=== PATIENT | male | born 1990 | race Caucasian/White ===

== ENCOUNTER 2024-04-23 15:43 | Inpatient (IN) | payer MEDICARE, MEDICAID, SELFPAY ==
[2024-04-23 16:19] VITALS: BP 155/89; PULSE 107; RESP 20; TEMP 37.9; O2SAT 97
--- NOTE | 2024-04-23 17:03 | XR_ITS ---
Examination: Abdomen upright single view Technique one AP upright abdomen single view Exam date and time: April 23, 2024 1714 hours INDICATIONS: Fever abdominal pain today. FINDINGS: Nonobstructive bowel gas pattern. No free air. Multiple clips right pelvis Moderate lumbar dextroscoliosis IMPRESSION: Nonobstructive bowel gas pattern
--- NOTE | 2024-04-23 17:04 | EDRME_ITS ---
Rapid Medical Screening Exam [facility] Arrival date/time: 04/23/24 15:43 34-year-old male presents to the emergency department with complaints of bodyaches, fever and mild abdominal pain. Patient does report he has a history of renal transplant on immunosuppressants. I have greeted and performed a focused initial assessment of this patient. Initial appropriate labs ordered at this time. A comprehensive ED assessment and evaluation of the patient and analysis of all test and completion of medical decision making process will be conducted by additional ED provider. Chief Complaint: Fever Time Seen by Provider: 04/23/24 16:21 Vital signs: Vital Signs Temperature 100.2 F 04/23/24 16:19 Pulse Rate 107 H 04/23/24 16:19 Respiratory Rate 20 04/23/24 16:19 Blood Pressure 155/89 H 04/23/24 16:19 Pulse Oximetry (%) 97 04/23/24 16:19 Oxygen Delivery Method Room Air 04/23/24 16:19
[2024-04-23 17:21] LABS: Collection Type, Urine Clean Catch; Squamous Epithelial Cell,Urine 0 /hpf (0-5)
[2024-04-23 17:25] LABS: Basophils % (Auto) 0 % (0-2.5); Eosinophils % (Auto) 0 % (0-10); Hematocrit 43.7 % (41.0-53.0); Hemoglobin 14.5 g/dL (13.5-16.0); Immature Granulocytes % (Auto) 1 % (0-0); Immature Granulocytes Auto 0.08 Thou/mm3 (0.00-0.00); Lymphocytes % (Auto) 10 % (10-50); Mean Corpuscular HGB Conc 33.2 g/dl (31.0-37.0); Mean Corpuscular Hemoglobin 26.1 pg (25.0-35.0); Mean Corpuscular Volume 79 fL (80-100); Monocytes # (Auto) 1.1 Thou/mm3 (0.0-0.8); Monocytes % (Auto) 11 % (0-12); Neutrophils # (Auto) 7.9 Thou/mm3 (1.8-7.7); Neutrophils % (Auto) 78 % (37-80); Nucleated Red Blood Cell % 0 /100 WBC (0); Platelet Count 197 Thou/mm3 (140-440); RDW Standard Deviation 37.5 fL (35.1-43.9); Red Blood Count 5.56 Miln/mm3 (4.50-5.90)
[2024-04-23 17:32] LABS: Bilirubin,Urine Negative (Negative); Blood,Urine 2+ (Negative); Clarity,Urine Clear (Clear/Hazy); Color,Urine Yellow (Lt Yel-Yel); Glucose, Urine Negative (Negative); Ketones,Urine Negative (Negative); Leukocyte Esterase,Urine Positive (Negative); Nitrite,Urine Negative (Negative); PH,Urine 6.5 (5.0-7.0); Protein,Urine 1+ (Neg - Trace); RBC,Urine 21 /hpf (0-3); Specific Gravity,Urine 1.018 (1.001-1.035); Urobilinogen,Urine Negative mg/dL (0.0-1.0); WBC,Urine 25 /hpf (0-5)
[2024-04-23 17:35] LABS: INR 1.2 (0.9-1.3); Prothrombin Time 12.8 Seconds (9.0-12.2)
[2024-04-23 17:42] LABS: Alanine Aminotransferase 58 U/L (10-49); Albumin, Serum 4.9 gm/dL (3.5-5.0); Albumin/Globulin Ratio 1.6 (1.2-2.2); Alkaline Phosphatase 85 U/L (46-116); Anion Gap 11 (7-16); Aspartate Amino Transferase 39 U/L (0-34); BUN/Creatinine Ratio 11 Ratio (12-20); Bilirubin,Total 2.5 mg/dL (0.3-1.2); Blood Urea Nitrogen 24 mg/dL (9-23); Calcium 9.7 mg/dL (8.3-10.6); Calcium (Corrected) 9.7 mg/dL (8.5-10.1); Carbon Dioxide 19.4 mMol/L (20.0-31.0); Chloride 104 mMol/L (98-107); Creatinine (Component) 2.1 mg/dL (0.6-1.3); Globulin 3.1 gm/dL (2.3-3.5); Glucose 116 mg/dL (74-106); Lipase 85 U/L (12-53); Magnesium 1.4 mg/dL (1.6-2.6); Osmolality,Calculated 273 (275-295); Potassium 4.6 mMol/L (3.4-5.1); Sodium 134 mMol/L (136-145); Troponin I < 0.020 ng/mL (0.0-0.045); eGFR 41 See Note
[2024-04-23] MEDS: ACETAMINOPHEN 500 MG TABLET 1000 MG PO (18:26)
[2024-04-23 18:28] VITALS: BMI 35.9
[2024-04-23 18:46] LABS: Lactate (Lactic Acid) 0.8 mMol/L (0.4-2.0)
[2024-04-23 20:05] LABS: Procalcitonin 0.54 ng/ml (0.0-0.49)
[2024-04-23 22:19] VITALS: BP 142/91; PULSE 98; RESP 18; TEMP 36.8; O2SAT 97
[2024-04-23 23:13] VITALS: BP 137/91; PULSE 100; RESP 19; TEMP 36.7; O2SAT 99
[2024-04-24] VITALS (11 sets, daily range): BP systolic 137–161; BP diastolic 78–95; PULSE 86–102; RESP 17–19; TEMP 36.6–37.3; O2SAT 88–99; BMI 35.9
--- NOTE | 2024-04-24 | XR_ITS ---
MRI abdomen, without contrast. MRCP Date and time of exam: April 24, 2024 1212 hrs. Indications: Abdominal pain fever flank pain, diagnosis immunocompromised, CT examination today right transplant kidney with no hydronephrosis, gallbladder sonogram today hyperechoic pancreas, borderline thickening gallbladder wall Technique: Multiple axial and coronal images of the abdomen have been obtained with the Siemens 1.5T MRI scanner. Images obtained included T1 weighted transverse images, T2-weighted transverse images, T2-weighted transverse images fat-suppressed, T2 weighted haste fat suppressed transverse images, T1 weighted images, in and out of phase images, T2-weighted coronal images, breath hold, T2 weighted haze coronal images as well as T2 weighted coronal thick slab images, MRCP. Findings: Liver sagittal dimension 14 cm, no intrahepatic biliary tract dilatation Liver is mildly irregular in contour Contracted gallbladder with no gallbladder wall edema Common hepatic duct common bile duct 2 mm no stones Splenomegaly 13.8 cm The pancreas is not enlarged. No pancreatic edema. No dilatation pancreatic duct Aorta normal size No ascites In stage atrophic left kidney Absent right kidney Impression: Cirrhosis versus primary hepatocellular disease Mild splenomegaly Contracted gallbladder, no gallstones, negative for cholecystitis Normal common hepatic common bile duct, no extrahepatic biliary stones No pancreatic mass, negative for pancreatitis
--- NOTE | 2024-04-24 01:03 | PD.EDFEVER ---
ED Fever RME/HPI General Chief Complaint: Fever Stated Complaint: Fever, REINA, flank and leg pain Time Seen by Provider: 04/23/24 16:21 Arrival date/time: 04/23/24 15:43 Limitations: no limitations RME / HPI RME / HPI Narrative: 04/23/24 15:43 34-year-old male presents to the emergency department with complaints of bodyaches, fever and mild abdominal pain. Patient does report he has a history of renal transplant on immunosuppressants. I have greeted and performed a focused initial assessment of this patient. Initial appropriate labs ordered at this time. A comprehensive ED assessment and evaluation of the patient and analysis of all test and completion of medical decision making process will be conducted by additional ED provider. ------- Dr. Mckeon's Main ED Evaluation: 34yo male with a history of HTN, kidney transplant at the [facility] (2018 at [facility]) presents to the ED for multiple complaints. Patient states he started having a headache, generalized body aches, a fever, and epigastric and mid abdominal pain pain yesterday. States it migrates to his left abdomen. He endorses associated nausea. Patient states he took Tylenol without improvement of symptoms, so he came in for evaluation. He denies any V/D or any other associated symptoms. Patient states he hasn't been drinking fluids. No known allergies. Related Data Home Medications ?Medication ?Instructions ?Recorded ?Confirmed mycophenolate sodium 180 mg 180 mg PO BID 02/17/19 10/18/21 tablet,delayed release (Myfortic) sodium bicarbonate 325 mg tablet 325 mg PO 3XD 02/17/19 10/18/21 tacrolimus 1 mg capsule, 3 mg PO BID 02/17/19 10/18/21 immediate-release tacrolimus 5 mg capsule, 5 mg PO BID 02/17/19 10/18/21 immediate-release metoprolol tartrate 25 mg tablet 25 tab PO BID 10/17/21 10/18/21 Allergies Allergy/AdvReac Type Severity Reaction Status Date / Time No Known Allergies Allergy Verified 11/28/23 15:13 Review of Systems Review of Systems Systems Reviewed: All systems reviewed, normal except as documented Past Medical History Past Medical History CARDIAC: Positive Hypertension; Negative Congestive Heart Failure RESPIRATORY: Negative Chronic Obstructive Pulmonary Disease (COPD) GENITOURINARY: Positive Genitourinary Disorders, Renal Disease and Dialysis ENDOCRINE: Negative Diabetes Mellitus Type 1 or Diabetes Mellitus Type 2 OTHER HISTORY: Positive Hospitalization, Blood Transfusions and Organ Transplant Surgical History SURGICAL: Positive Organ Transplant Social History SMOKING STATUS: Never smoker SUBSTANCE USE: does not use Physical Exam General Limitations: no limitations General appearance: alert, in no apparent distress and other (appears uncomfortable) Head Head exam: atraumatic Eye Eye exam: Present normal appearance, PERRL and EOMI; Absent scleral icterus ENT ENT exam: Present normal exam, normal oropharynx and mucous membranes dry Neck Neck exam: Present normal inspection, full ROM and trachea midline Chest Chest inspection: Present normal inspection and symmetric chest wall rise Respiratory Respiratory exam: Present normal lung sounds bilaterally Cardiovascular Cardiovascular exam: Present regular rate, normal rhythm and normal heart sounds Abdominal Exam Abdominal exam: Present soft and normal bowel sounds; Absent distention or tenderness Extremities Exam Extremities exam: Present normal inspection and full ROM; Absent pedal edema Back Exam Back exam: Present normal inspection and full ROM Neurological Exam Neurological exam: Present alert, oriented X3 and CN II-XII intact Psychiatric Psychiatric exam: Present normal affect and normal mood Skin Skin exam: Present warm, dry, intact and other (slightly jaundice); Absent diaphoresis ED Exam General Limitations: Present no limitations General appearance: Present alert, in no apparent distress and other (appears uncomfortable) Head Head exam: Present atraumatic Eye Eye exam: Present normal appearance, PERRL and EOMI; Absent scleral icterus ENT ENT exam: Present normal exam, normal oropharynx and mucous membranes dry Neck Neck exam: Present normal inspection, full ROM and trachea midline Chest Chest inspection: Present normal inspection and symmetric chest wall rise Respiratory Respiratory exam: Present normal lung sounds bilaterally Cardiovascular Cardiovascular exam: Present regular rate, normal rhythm and normal heart sounds Abdominal Exam Abdominal exam: Present soft and normal bowel sounds; Absent distention or tenderness Extremities Exam Extremities exam: Present normal inspection and full ROM; Absent pedal edema Back Exam Back exam: Present normal inspection and full ROM Neurological Exam Neurological exam: Present alert, oriented X3 and CN II-XII intact Psychiatric Psychiatric exam: Present normal affect and normal mood Skin Skin exam: Present warm, dry, intact and other (slightly jaundice); Absent diaphoresis Course Quality Measures none Orders Category Date Time Status Bedside COVID-19 Antigen Test NOW Care 04/23/24 16:45 Completed Bedside Influenza A&B Antigen Test NOW Care 04/23/24 16:45 Completed NPO STAT Care 04/23/24 17:[address] abdomen pelvis wo con Stat Exams 04/24/24 03:33 Taken US gall bladder Stat Exams 04/24/24 01:19 Taken XR abdomen upright Stat Exams 04/23/24 17:03 Completed Blood Culture (Lab) Stat Lab 04/23/24 17:15 Received CBC Stat Lab 04/23/24 17:13 Completed Cholesterol Stat Lab 04/24/24 03:35 Ordered Comprehensive Metabolic Panel Stat Lab 04/23/24 17:13 Completed LDH (Lactate Dehydrogenase) Stat Lab 04/24/24 03:35 Ordered Lactate (Lactic Acid) Stat Lab 04/23/24 18:18 Completed Lipase Stat Lab 04/23/24 17:13 Completed Magnesium Stat Lab 04/23/24 17:13 Completed Procalcitonin Stat Lab 04/23/24 18:18 Completed Prothrombin Time with INR Stat Lab 04/23/24 17:13 Completed Troponin I Stat Lab 04/23/24 17:13 Completed Urinalysis Stat Lab 04/23/24 17:14 Completed Acetaminophen Tab [Tylenol ES Tab] Med 04/23/24 17:45 Discontinued 1,000 mg PO X1 ONE Acetaminophen Tab [Tylenol ES Tab] Med 04/24/24 02:51 Discontinued 1,000 mg PO X1 ONE HYDROmorphone INJ [Dilaudid Inj] Med 04/24/24 03:36 Discontinued 0.5 mg IVP X1 ONE Ibuprofen Tab [Motrin Tab] Med 04/23/24 18:29 Discontinued 600 mg PO X1 ONE Morphine Inj Med 04/24/24 03:33 Discontinued 2 mg IVP X1 ONE Ondansetron Inj [Zofran Inj] Med 04/24/24 01:09 Discontinued 4 mg IV X1 ONE Ondansetron Inj [Zofran Inj] Med 04/24/24 03:33 Discontinued 4 mg IV X1 ONE Sodium Chloride 0.9% 1000 ml [Ns] 1,000 ml Med 04/24/24 01:09 Discontinued IV 999 mls/hr Vital Signs Vital signs: Vital Signs Temperature 100.2 F 04/23/24 16:19 Pulse Rate 107 H 04/23/24 16:19 Respiratory Rate 20 04/23/24 16:19 Blood Pressure 155/89 H 04/23/24 16:19 Pulse Oximetry (%) 97 04/23/24 16:19 Oxygen Delivery Method Room Air 04/23/24 16:19 Pulse ox is 97% on room air, which is normal according to my interpretation. Fever Patient data External records reviewed:: [facility] previous records (Per chart review, patient was seen here on 11/28/23 for DOC.) Clinical information provided by:: patient Social determinants that could affect healthcare access:: none Patient has the following chronic illnesses:: HTN How is presenting disease/condition affected by chronic disease/condition?: uneffected by Evaluation data The following diagnostics were reviewed and interpreted by me:: lab results and radiology exam(s) Lab and/or radiology exams considered but not ordered:: none Interpretation Summary: CBC is normal, Creatinine is 2.1, Lactic Acid is normal, Magnesium is slightly low at 1.4, Total Bilirubin is elevated at 2.5, AST and ALT are slightly elevated, troponin is normal, Lipase is slightly elevated at 85, Procalcitonin is slightly elevated at 0.54, according to my interpretation. -------- [facility] Report Signed Patient: BLAKE BALLESTEROS [employer]. Record#: [id number] Birthdate: 1990 Age/Sex: 34 / M Location: [facility] Attending Dr: Ordering Physician: Namita Cruz Date of Service: 04/23/24 Procedure(s): XR abdomen upright Accession Number(s): [id number] cc: Silvestre Soto MD; Anant Lovett MD; Namita Cruz~ Examination: Abdomen upright single view Technique one AP upright abdomen single view Exam date and time: April 23, 2024 1714 hours INDICATIONS: Fever abdominal pain today. FINDINGS: Nonobstructive bowel gas pattern. No free air. Multiple clips right pelvis Moderate lumbar dextroscoliosis IMPRESSION: Nonobstructive bowel gas pattern Dictated By: Silvestre Soto MD Signed By: <Electronically signed by Silvestre Soto MD in OV> 04/23/24 [id number] [address] Preliminary Report Draft Patient: BLAKE BALLESTEROS [employer]. Record#: [id number] Birthdate: 1990 Age/Sex: 34 / M Location: [facility] Attending Dr: Ordering Physician: Date of Service: Procedure(s): Accession Number(s): cc: ~ Right upper quadrant abdominal ultrasound with Doppler and wave Doppler spectral analysis. April 24, 2024 0209 hours Clinical history: 34-yo with elevated lipase, immunocompromise possible GS Technique: Grayscale and color flow images of the right upper quadrant are provided. Hepatic and portal veins were also imaged with color flow images. Comparison: None. Findings: The study is limited by bowel gas. The liver is normal in echogenicity. No intrahepatic biliary ductal dilatation. Gallbladder wall thickening. No gallbladder calculus or pericholecystic fluid is demonstrated. The common bile duct is normal in caliber at 3.0 mm. The pancreas imaged portion of the pancreas are hyperechoic. The portal vein is patent with hepatopetal flow with normal wave Doppler spectral analysis. Holly sign is negative. Impression: Hyperechoic pancreas suspicious for acute pancreatitis. Gallbladder wall thickening, suspicious for acute cholecystitis, consider correlation with HIDA scan. Report Electronically Signed By: Ashok Anderson 04/24/2024 3:28:38 AM [EST] Medications / Prescriptions Medications or Prescriptions considered but not ordered:: none Medication administrations:: Medication Administration History Discontinued Medications Acetaminophen (Acetaminophen 500 Mg Tablet) 1,000 mg PO X1 ONE Stop: 04/23/24 17:46 Last Admin: 04/23/24 18:26 Dose: 1,000 mg Documented By: Acetaminophen (Acetaminophen 500 Mg Tablet) 1,000 mg PO X1 ONE Stop: 04/24/24 02:52 Last Admin: 04/24/24 03:15 Dose: 1,000 mg Documented By: AM Hydromorphone HCl (Hydromorphone Inj 2 Mg/Ml Vial) 0.5 mg IVP X1 ONE Stop: 04/24/24 03:37 Sodium Chloride (Ns) 1,000 mls @ 999 mls/hr IV .Q1H1M ONE Stop: 04/24/24 02:09 Last Infusion: 04/24/24 02:40 Dose: Infused Documented By: Admin: 04/24/24 01:39 Dose: 999 mls/hr Documented By: EE Ibuprofen (Ibuprofen Tab 600 Mg Tablet) 600 mg PO X1 ONE Stop: 04/23/24 18:30 Last Admin: 04/23/24 19:42 Dose: Not Given Documented By: CB Non-Admin Reason: Cancelled by Provider Morphine Sulfate (Morphine Sulf Inj 10 Mg/Ml Vial) 2 mg IVP X1 ONE Stop: 04/24/24 03:34 Last Admin: 04/24/24 03:47 Dose: Not Given Documented By: RC Non-Admin Reason: Discontinued Ondansetron HCl (Ondansetron Inj 2 Mg/Ml Inj 2 Ml) 4 mg IV X1 ONE; Protocol Stop: 04/24/24 01:10 Last Admin: 04/24/24 01:40 Dose: 4 mg Documented By: ROSEMARIE Ondansetron HCl (Ondansetron Inj 2 Mg/Ml Inj 2 Ml) 4 mg IV X1 ONE; Protocol Stop: 04/24/24 03:34 see above Consultations Consultation(s) initiated? (list below): No Diagnosis Fever Differential Diagnosis: pyelonephritis and other (cholelithiasis, cholecystitis, pancreatitis) Most likely diagnosis given after review of the tests above:: see below Admission Indicated Admission indicated?: not indicated Admission Request Was there a request for admission?: No Disposition Plan Disposition Plan: other (specify) (Signed out to Dr. Myers at [address] abdomen pelvis.) Discharge Plan Prescriptions/Referrals Prescriptions/Med Rec: No Action tacrolimus 5 mg Capsule 5 mg PO BID tacrolimus 1 mg Capsule 3 mg PO BID mycophenolate sodium [Myfortic] 180 mg tablet,delayed release (DR/EC) 180 mg PO BID sodium bicarbonate 325 mg Tablet 325 mg PO 3XD metoprolol tartrate 25 mg tablet 25 tab PO BID Referrals: Anant Lovett MD [Primary Care Provider] - In 1 week Patient/Caregiver Discharge Instructions Print Language: Portuguese
--- NOTE | 2024-04-24 01:19 | XR_ITS ---
Examination: Abdomen sonogram, Limited Date and time of exam: April 24, 2024 0209 hours INDICATIONS: Right-sided abdominal pain onset today Technique: Real-time man scale transabdominal sonographic images of the upper abdomen obtained. Findings: Gas obscures detail No definite gallstones Gallbladder wall measures 0.34 cm Common bile duct 0.3 cm Hyperechoic pancreas measuring 3.5 cm Liver normal size irregular contour. Normal hepatopedal portal venous flow Patent IVC IMPRESSION: Consider MRCP follow-up to assess the gallbladder , exclude cholecystitis as well as to exclude pancreatitis
[2024-04-24] MEDS: SODIUM CHLORIDE 0.9% 1000 ML 1,000 ML 999 ML IV ×2 (01:39→05:59)
[2024-04-24] MEDS: ONDANSETRON INJ 2 MG/ML INJ 2 ML 4 MG IV ×2 (01:40→16:26)
[2024-04-24] MEDS: ACETAMINOPHEN 500 MG TABLET 1000 MG PO (03:15)
--- NOTE | 2024-04-24 03:29 | PRELIM_ITS ---
Right upper quadrant abdominal ultrasound with Doppler and wave Doppler spectral analysis. March 0209 hours Clinical history: 34-yo with elevated lipase, immunocompromise possible GS Techniqu e: Grayscale and color flow images of the right upper quadrant are provided. Hepatic and portal veins were also imaged with color flow images. Comparison: None.Findings:The study is limited by bowel gas .The liver is normal in echogenicity. No intrahepatic biliary ductal dilatation. Gallbladder wall th ickening. No gallbladder calculus or pericholecystic fluid is demonstrated. The common bile duct is normal in caliber at 3.0 mm. The pancreas imaged portion of the pancreas are hyperechoic. The sanjana l vein is patent with hepatopetal flow with normal wave Doppler spectral analysis.Holly sign is nega tive.Impression:Hyperechoic pancreas suspicious for acute pancreatitis.Gallbladder wall thickening, s uspicious for acute cholecystitis, consider correlation with HIDA scan. Report Electronically Signed By: Ashok Anderson 04/24/2024 3:28:38 AM [EST]
--- NOTE | 2024-04-24 03:33 | XR_ITS ---
Examination: CT abdomen and pelvis without contrast. Coronal 3-D reconstructions. Sagittal 2-D reconstructions. Date and time of exam:April 24, 2024 0406 hours INDICATIONS: History renal failure with abdominal pain fever today right flank and leg pain, history diverticulitis CTDI: vol (mGy): 10.8 DLP: (mGycm): 708 Technique: Axial images of the abdomen have been obtained, 3 mm slice thickness Intravenous contrast material has not been administered. Low dose protocols were performed. One or more of the following dose reduction techniques were used; automated exposure control, adjustment of the mA and/or KV according to patient size, use of iterative reconstruction technique. Findings: Liver mildly irregular in contour Contracted gallbladder Splenomegaly 14 cm Absent right kidney Normal appendix Endstage atrophic left kidney with tiny calcifications No bowel obstruction Right transplant kidney with no hydronephrosis No current diverticulitis Urinary bladder intact I do not visualize definite colitis IMPRESSION: Primary hepatocellular disease Splenomegaly End-stage atrophic left kidney Right transplant kidney with no hydronephrosis Normal appendix
--- NOTE | 2024-04-24 05:40 | PRELIM_ITS ---
CT scan of the abdomen and pelvis without intravenous contrast (axial sections with sagittal and toya nal reformats) April 24, 2024 0406 hours Clinical History: 34-year-old history of renal transplant Comparison: Ultrasound of April 24, 2024.Findings:The lung bases are clear.The gallbladder, pancrea s, and adrenals are unremarkable on this noncontrast study.Splenomegaly with craniocaudal diameter of 14.9 cm.Mild irregular liver margins.The right kidney is absent.Atrophic left kidney with cystic les ions, the largest measuring 4.1 cm.No evidence of bowel obstruction. The appendix is within normal li mits.There is no mesenteric or retroperitoneal adenopathy.The urinary bladder is unremarkable. There is no free fluid or free air.The osseous structures are unremarkable.Fluid stools throughout the colo n associated with mild colonic wall thickening.No pericolonic fat stranding.Diverticulosis of the col on.Transplanted kidney in the right iliac fossa, normal-appearing.Soft tissue nodule in the right jaylon ac fossa measuring 1.0 cm.Impression:Mild colitis.Possible cirrhosis.Splenomegaly.Absent right kidney .Atrophic left kidney with cystic lesions, consider further evaluation for characterization.Soft tiss ue nodule in the right lower quadrant of uncertain etiology, consider further evaluation. Report Elec tronically Signed By: Ashok Anderson 04/24/2024 5:39:55 AM [EST]
[2024-04-24] MEDS: PIPER/TAZO 3.375 GM 3.375 GM/50 ML BAG IV (05:58)
--- NOTE | 2024-04-24 07:19 | PC.NURSE ---
Received report from Josefina PAUL and assumed care of patient. Patient resting in bed and states pain 5/10.
--- NOTE | 2024-04-24 12:47 | PD.EDADDENDU ---
Emergency Room Addendum Addendum Narrative: 0600: Care assumed from Dr. Myers, the previous shift emergency physician. Past medical, surgical, social and family history reviewed. Vitals and home medications reviewed. I will assume the care of the patient at this time, pending CT abdomen pelvis and final disposition. Please refer to the emergency department record for history and examination from initial visit.? Physical exam by me shows patient under no acute distress at this time. 1548: Discussed test HPI, PMHx, lab, radiology results and/or management with hospitalist. Will admit for further evaluation and management. Accepts patient for admission. 1639: Hospitalist wanted us to contact Dr. Lovett since she is the primary provider and production officer. 1640: Discussed test HPI, PMHx, lab, radiology results and/or management with Dr. Lovett. Will admit for further evaluation and management. Accepts patient for admission. RADIOLOGY Procedure(s): CT abdomen pelvis wo [facility] Accession Number(s): [id number] cc: Silvestre Soto MD; Marine Mckeon MD; Anant Lovett MD~ Examination: CT abdomen and pelvis without contrast. Coronal 3-D reconstructions. Sagittal 2-D reconstructions. Date and time of exam:April 24, 2024 0406 hours INDICATIONS: History renal failure with abdominal pain fever today right flank and leg pain, history diverticulitis CTDI: vol (mGy): 10.8 DLP: (mGycm): 708 Technique: Axial images of the abdomen have been obtained, 3 mm slice thickness Intravenous contrast material has not been administered. Low dose protocols were performed. One or more of the following dose reduction techniques were used; automated exposure control, adjustment of the mA and/or KV according to patient size, use of iterative reconstruction technique. Findings: Liver mildly irregular in contour Contracted gallbladder Splenomegaly 14 cm Absent right kidney Normal appendix Endstage atrophic left kidney with tiny calcifications No bowel obstruction Right transplant kidney with no hydronephrosis No current diverticulitis Urinary bladder intact I do not visualize definite colitis IMPRESSION: Primary hepatocellular disease Splenomegaly End-stage atrophic left kidney Right transplant kidney with no hydronephrosis Normal appendix Dictated By: Silvestre Soto MD Procedure(s): US gall bladder Accession Number(s): [id number] cc: Silvestre Soto MD; Marine Mckeon MD; Anant Lovett MD~ Examination: Abdomen sonogram, Limited Date and time of exam: April 24, 2024 0209 hours INDICATIONS: Right-sided abdominal pain onset today Technique: Real-time man scale transabdominal sonographic images of the upper abdomen obtained. Findings: Gas obscures detail No definite gallstones Gallbladder wall measures 0.34 cm Common bile duct 0.3 cm Hyperechoic pancreas measuring 3.5 cm Liver normal size irregular contour. Normal hepatopedal portal venous flow Patent IVC IMPRESSION: Consider MRCP follow-up to assess the gallbladder , exclude cholecystitis as well as to exclude pancreatitis Dictated By: Silvestre Soto MD Procedure(s): MR MRCP Accession Number(s): [id number] cc: Aneesh Myers MD; Silvestre Soto MD; Anant Lovett MD~ MRI abdomen, without contrast. MRCP Date and time of exam: April 24, 2024 1212 hrs. Indications: Abdominal pain fever flank pain, diagnosis immunocompromised, CT examination today right transplant kidney with no hydronephrosis, gallbladder sonogram today hyperechoic pancreas, borderline thickening gallbladder wall Technique: Multiple axial and coronal images of the abdomen have been obtained with the Siemens 1.5T MRI scanner. Images obtained included T1 weighted transverse images, T2-weighted transverse images, T2-weighted transverse images fat-suppressed, T2 weighted haste fat suppressed transverse images, T1 weighted images, in and out of phase images, T2-weighted coronal images, breath hold, T2 weighted haze coronal images as well as T2 weighted coronal thick slab images, MRCP. Findings: Liver sagittal dimension 14 cm, no intrahepatic biliary tract dilatation Liver is mildly irregular in contour Contracted gallbladder with no gallbladder wall edema Common hepatic duct common bile duct 2 mm no stones Splenomegaly 13.8 cm The pancreas is not enlarged. No pancreatic edema. 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
--- NOTE | 2024-04-24 15:48 | XR_ITS ---
Examination: AP chest single view Technique one AP portable semiupright chest single view Exam date and time: April 24, 2024 1603 hrs. Comparison May 05, 2020 Indications: Fever in an immunocompromised individual Findings: Enlarged hilar regions suspicious for adenopathy and perihilar inflammatory disease Accentuation of the basilar bronchovascular markings No brittany pulmonary edema Mild osteopenia Impression: Abnormally enlarged hilar regions suspicious for adenopathy and perihilar inflammatory disease Clinical correlation advised
--- NOTE | 2024-04-24 15:55 | PC.NURSE ---
Patient states pain 9/10. Informed ER provider and received verbal order for 4mg Zofran IV and 0.5mg hydromorphone IV.
--- NOTE | 2024-04-24 15:59 | PC.NURSE ---
Patient states pain 9/10. Informed ER provider and received verbal order for 4mg Zofran IV and 4mg morphine IV.
[2024-04-24 16:11] LABS: Cholesterol 130 mg/dL (132-200); LDH (Lactate Dehydrogenase) 201 U/L (120-246)
[2024-04-24] MEDS: MORPHINE SULF INJ 10 MG/ML VIAL 4 MG IVP (16:26)
--- NOTE | 2024-04-24 16:46 | PD.NEPHHP ---
Documentation for date of: 04/24/24 History of Present Illness History of Present Illness Chief complaint: Fever, s/p kidney transplant, r/o sepsis History of present illness: Mr. Cramer is a?34 year-old male with pmhx significant for polycystic kidney disease, hypertension- was on hemodialysis for couple of years. Fortunately had kidney transplant (2018 at [facility] [place]- wit delayed graft function), left upper arm DVT, metabolic acidosis presented to emergency department complaining of fevers weakness and not feeling well. Denies any nausea, vomiting, diarrhea, cough, shortness of breath, abdominal pain, UTI symptoms or any other associated symptoms. Denies any falls, injuries, or loss of consciousness. No known allergies. Patient states he is currently on Eliquis, Lipitor, vitamin D, magnesium, metoprolol, CellCept, sodium bicarbonate, tacrolimus for kidney transplant in 2018. In the emergency department patient was noted to have a elevated creatinine of 2.1 Started on IV fluids and admitted. ER called the transplant team-recommended overnight observation pending cultures and to continue with IV fluids. In the emergency department WBC 10, hemoglobin 14.5, platelets 197, sodium 134, potassium 4.6, BUN to 24, creatinine 2.1, GFR 57, blood sugar 116, LFTs normal, phosphorus 2.9, magnesium 1.4, total bilirubin 2.5, AST 39, ALT 59, total cholesterol 130, Pro-Willis 0.54 urinalysis shows 1+ protein few red blood cells and white cells. 2+ blood. chest x-ray showed inflammation in the hilar area. Abdominal CT showed liver cirrhosis, splenomegaly, end-stage kidneys, right kidney transplant. Gallbladder ultrasound showed no definite gallstones but the common bile duct was 0.3 gallbladder wall slightly enlarged. MRCP showed no stones. Patient in fact recently was admitted to [facility] hospital for acute renal failure and transferred to [facility]. Admitted to the floor for fever-unknown etiology, immunosuppression for kidney transplant, DOC. Review of Systems Review of Systems Narrative Review of Systems: CONSTITUTIONAL: Patient had fever and chills HEENT: Denies any visual disturbances or hearing problems. CARDIOVASCULAR: Patient denies any chest pain, shortness of breath, swelling in the lower extremities. PULMONARY: Patient denies any shortness of breath, cough. GASTROINTESTINAL: Patient denies any abdominal pain, constipation, nausea, vomiting, diarrhea. GENITOURINARY: Patient denies any urinary symptoms of burning or frequency or hematuria, denies any form in the urine. SKIN: Denies any rash. MUSCULOSKELETAL: Denies any muscular skeletal problems of joint pains. NEUROLOGICAL: Denies any neurological problems of strokes, seizures or confusion. Denies any memory problems. PSYCHIATRIC: Denies any depression or anxiety. LYMPHATICS : No lymphadenopathy Past Medical History Past Medical History CARDIAC: Positive Hypertension; Negative Congestive Heart Failure RESPIRATORY: Negative Respiratory Disorders or Chronic Obstructive Pulmonary Disease (COPD) GENITOURINARY: Positive Genitourinary Disorders, Renal Disease and Dialysis ENDOCRINE: Negative Diabetes Mellitus Type 1 or Diabetes Mellitus Type 2 OTHER HISTORY: Positive Hospitalization, Blood Transfusions and Organ Transplant Surgical History SURGICAL: Positive Organ Transplant Social History SMOKING STATUS: Never smoker SUBSTANCE USE: does not use Meds Home Medications and Allergies Home Medications ?Medication ?Instructions ?Recorded ?Confirmed ?Type mycophenolate sodium 180 mg 720 mg PO BID 02/17/19 04/25/24 History tablet,delayed release (Myfortic) sodium bicarbonate 325 mg tablet 650 mg PO 3XD 02/17/19 04/24/24 History tacrolimus 1 mg capsule, 1 mg PO 2XD 02/17/19 04/25/24 History immediate-release tacrolimus 5 mg capsule, 5 mg PO 2XD 02/17/19 04/25/24 History immediate-release metoprolol tartrate 25 mg tablet 25 tab PO 2XD 10/17/21 04/25/24 History apixaban 5 mg tablet (Eliquis) 5 mg PO QAM 04/24/24 04/24/24 History atorvastatin 20 mg tablet 20 mg PO HS 04/24/24 04/24/24 History ergocalciferol (vitamin D2) 1,250 1,250 mcg PO QDAY 04/24/24 04/24/24 History mcg (50,000 unit) capsule magnesium oxide 400 mg (241.3 mg 400 mg PO QAM 04/24/24 04/24/24 History magnesium) tablet Allergies Allergy/AdvReac Type Severity Reaction Status Date / Time No Known Allergies Allergy Verified 11/28/23 15:13 Exam Vital Signs Temp Pulse Resp BP Pulse Ox O2 Del Method 36.9 C 89 18 153/94 H 98 Room Air 04/24/24 14:55 04/24/24 14:55 04/24/24 14:55 04/24/24 14:55 04/24/24 14:55 04/24/24 14:55 Narrative Exam GENERAL APPEARANCE: Patient seems to be comfortable, seems dehydrated HEENT: EOMI, PERRLA NECK: Neck supple, no JVD or bruit CARDIOVASCULAR: Heart regular, no murmurs LUNGS/CHEST: Chest clear to auscultation. No rales, rhonchi, wheezing ABDOMEN: Soft, nontender, nondistended. No masses. Normal bowel sounds. Right allograft+ EXTREMITIES: No edema, clubbing or cyanosis. SKIN: Left arm AV fistula with no thrill. MUSCULOSKELETAL: Good pulses noted. NEUROLOGICAL : No neurological deficits Results: Labs 04/25/24 05:24 04/25/24 05:24 Labs: Short CBC 04/23/24 Range/Units 17:13 WBC 10.0 (3.8-10.6) Thou/mm3 Hgb 14.5 (13.5-16.0) g/dL Hct 43.7 (41.0-53.0) % Plt Count 197 (140-440) Thou/mm3 BMP 04/23/24 17:13 Sodium 134 L Potassium 4.6 Chloride 104 Carbon Dioxide 19.4 L BUN 24 H Creatinine 2.1 H Glucose 116 H Calcium 9.7 Cardiac Enzymes 04/23/24 Range/Units 17:13 Troponin I < 0.020 (0.0-0.045) ng/mL Liver Function 04/23/24 Range/Units 17:13 Total Bilirubin 2.5 H (0.3-1.2) mg/dL AST 39 H (0-34) U/L ALT 58 H (10-49) U/L Alkaline Phosphatase 85 (46-116) U/L Albumin 4.9 (3.5-5.0) gm/dL Urine 04/23/24 Range/Units 17:14 Urine Color Yellow (Lt Yel-Yel) Urine Clarity Clear (Clear/Hazy) Urine pH 6.5 (5.0-7.0) Ur Specific [place] 1.018 (1.001-1.035) Urine Protein 1+ A (Neg - Trace) Urine Glucose (UA) Negative (Negative) Assessment & Plan Assessment and plan (1) Acute kidney injury: Status: Acute (2) Hypertension: Status: Acute (3) Status post kidney transplant: Status: Acute (4) Metabolic acidosis: Status: Acute Additional Assessment & Plan Additional Plan: 1) Acute kidney injury: ?Status:?Acute ? ? ? Assessment and plan: Acute on chronic renal failure secondary to prerenal azotemia.? IV fluids given. 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 ? ? Assessment and plan: Continue metoprolol (3) Status post kidney transplant: ?Status:?Acute ? ? ? Assessment and plan: S/p kidney transplant-resume home immunosuppressive medication (4) hx of Deep venous thrombosis of upper extremity: ?Status:?Acute ? ? ? Assessment and plan: On Eliquis (5) Metabolic acidosis: ?Status:?Acute ? ? ? Assessment and plan: Added bicarbonate Estimated length of stay 2 to 3 days DVT prophylaxis on Eliquis GI prophylaxis not needed CODE STATUS full code Quality Measures Quality Measures none
[2024-04-24 17:05] LABS: Basophils % (Auto) 0 % (0-2.5); Eosinophils % (Auto) 0 % (0-10); Hematocrit 44.4 % (41.0-53.0); Hemoglobin 14.4 g/dL (13.5-16.0); Immature Granulocytes % (Auto) 0 % (0-0); Immature Granulocytes Auto 0.03 Thou/mm3 (0.00-0.00); Lymphocytes % (Auto) 11 % (10-50); Mean Corpuscular HGB Conc 32.4 g/dl (31.0-37.0); Mean Corpuscular Hemoglobin 26.3 pg (25.0-35.0); Mean Corpuscular Volume 81 fL (80-100); Monocytes # (Auto) 1.1 Thou/mm3 (0.0-0.8); Monocytes % (Auto) 13 % (0-12); Neutrophils # (Auto) 6.7 Thou/mm3 (1.8-7.7); Neutrophils % (Auto) 76 % (37-80); Nucleated Red Blood Cell % 0 /100 WBC (0); Platelet Count 198 Thou/mm3 (140-440); RDW Standard Deviation 39.1 fL (35.1-43.9); Red Blood Count 5.48 Miln/mm3 (4.50-5.90); White Blood Count 8.9 Thou/mm3 (3.8-10.6)
[2024-04-24 17:13] LABS: Albumin, Serum 4.7 gm/dL (3.5-5.0); Anion Gap 11 (7-16); BUN/Creatinine Ratio 15 Ratio (12-20); Blood Urea Nitrogen 30 mg/dL (9-23); Calcium 9.5 mg/dL (8.3-10.6); Calcium (Corrected) 9.5 mg/dL (8.5-10.1); Chloride 104 mMol/L (98-107); Estimated Creatinine Clearance 57.4 mL/min (>60); Glucose 101 mg/dL (74-106); Osmolality,Calculated 278 (275-295); Phosphorous 2.9 mg/dL (2.4-5.1); Potassium 4.7 mMol/L (3.4-5.1); Sodium 136 mMol/L (136-145); eGFR 44 See Note
[2024-04-24] MEDS: PIPER/TAZO 3.375 GM 50 ML IV ×2 (18:06→21:44)
--- NOTE | 2024-04-24 19:28 | PC.NURSE ---
Report given to Ruth PAUL @ [id number]
[2024-04-24] MEDS: Magnesium Sulfate 2 GM Ivpb 2 GM/50 ML BAG IV (19:29)
[2024-04-24] MEDS: METOPROLOL TARTRATE 25 MG TABLET PO (20:29)
[2024-04-24] MEDS: DiphenhydrAMINE ELIX 25 MG/10 ML UDC PO (21:51)
[2024-04-24] MEDS: ACETAMINOPHEN 500 MG TABLET PO (21:51)
[2024-04-25] VITALS (8 sets, daily range): BP systolic 119–149; BP diastolic 59–90; PULSE 80–90; RESP 17–19; TEMP 36.2–37.4; O2SAT 95–99
[2024-04-25] MEDS: PIPER/TAZO 3.375 GM 50 ML IV ×3 (05:13→21:12)
[2024-04-25] MEDS: SODIUM BICARBONATE 650 MG TABLET 1300 MG PO ×3 (05:15→21:07)
[2024-04-25 06:19] LABS: Basophils % (Auto) 0 % (0-2.5); Eosinophils % (Auto) 1 % (0-10); Hematocrit 43.3 % (41.0-53.0); Hemoglobin 13.8 g/dL (13.5-16.0); Immature Granulocytes % (Auto) 0 % (0-0); Immature Granulocytes Auto 0.02 Thou/mm3 (0.00-0.00); Lymphocytes # (Auto) 1.5 Thou/mm3 (1.0-4.8); Lymphocytes % (Auto) 22 % (10-50); Mean Corpuscular HGB Conc 31.9 g/dl (31.0-37.0); Mean Corpuscular Hemoglobin 26.1 pg (25.0-35.0); Mean Corpuscular Volume 82 fL (80-100); Monocytes # (Auto) 1.1 Thou/mm3 (0.0-0.8); Monocytes % (Auto) 16 % (0-12); Neutrophils % (Auto) 61 % (37-80); Nucleated Red Blood Cell % 0 /100 WBC (0); Platelet Count 191 Thou/mm3 (140-440); Red Blood Count 5.29 Miln/mm3 (4.50-5.90); White Blood Count 6.6 Thou/mm3 (3.8-10.6)
[2024-04-25 06:48] LABS: Albumin, Serum 4.3 gm/dL (3.5-5.0); Anion Gap 9 (7-16); BUN/Creatinine Ratio 14 Ratio (12-20); Blood Urea Nitrogen 30 mg/dL (9-23); Calcium 9.5 mg/dL (8.3-10.6); Calcium (Corrected) 9.5 mg/dL (8.5-10.1); Carbon Dioxide 20.7 mMol/L (20.0-31.0); Chloride 105 mMol/L (98-107); Creatinine (Component) 2.1 mg/dL (0.6-1.3); Estimated Creatinine Clearance 54.7 mL/min (>60); Glucose 104 mg/dL (74-106); Osmolality,Calculated 276 (275-295); Phosphorous 3.2 mg/dL (2.4-5.1); Potassium 4.4 mMol/L (3.4-5.1); Sodium 135 mMol/L (136-145); eGFR 41 See Note
[2024-04-25] MEDS: TACROLIMUS 1 MG CAPSULE (NON-FORMULARY) 5 MG PO (09:00)
--- NOTE | 2024-04-25 09:27 | PD.NEPHPROG ---
Documentation for date of: 04/25/24 Subjective Subjective Interval history: Mr. Cramer is a?34 year-old male with pmhx significant for polycystic kidney disease, hypertension- was on hemodialysis for couple of years. Fortunately had kidney transplant (2018 at [facility]- wit delayed graft function), left upper arm DVT, metabolic acidosis presented to emergency department complaining of fevers weakness and not feeling well. Denies any nausea, vomiting, diarrhea, cough, shortness of breath, abdominal pain, UTI symptoms or any other associated symptoms. Denies any falls, injuries, or loss of consciousness. No known allergies. Patient states he is currently on Eliquis, Lipitor, vitamin D, magnesium, metoprolol, CellCept, sodium bicarbonate, tacrolimus for kidney transplant in 2018. In the emergency department patient was noted to have a elevated creatinine of 2.1 Started on IV fluids and admitted. ER called the transplant team-recommended overnight observation pending cultures and to continue with IV fluids. In the emergency department WBC 10, hemoglobin 14.5, platelets 197, sodium 134, potassium 4.6, BUN to 24, creatinine 2.1, GFR 57, blood sugar 116, LFTs normal, phosphorus 2.9, magnesium 1.4, total bilirubin 2.5, AST 39, ALT 59, total cholesterol 130, Pro-Willis 0.54 urinalysis shows 1+ protein few red blood cells and white cells. 2+ blood. chest x-ray showed inflammation in the hilar area. Abdominal CT showed liver cirrhosis, splenomegaly, end-stage kidneys, right kidney transplant. Gallbladder ultrasound showed no definite gallstones but the common bile duct was 0.3 gallbladder wall slightly enlarged. MRCP showed no stones. Patient in fact recently was admitted to [facility] hospital for acute renal failure and transferred to [facility]. Admitted to the floor for fever-unknown etiology, immunosuppression for kidney transplant, DOC. 04/25/2024 patient currently seen medical floor. Complaining of right eye infection. Tobramycin eye ointment given. Recommended to follow-up with his eye doctor [facility]. He is immunocompromised. Resumed all his immunosuppressive medications. So far all the cultures are negative. Creatinine tad better. Could be viral illness. If clinically stable will plan for discharge tomorrow. Review of Systems Review of Systems Narrative Review of Systems: CONSTITUTIONAL: Patient had fever and chills HEENT: Complaining of right eye conjunctivitis with erythema around the eyelids CARDIOVASCULAR: Patient denies any chest pain, shortness of breath, swelling in the lower extremities. PULMONARY: Patient denies any shortness of breath, cough. GASTROINTESTINAL: Patient denies any abdominal pain, constipation, nausea, vomiting, diarrhea. GENITOURINARY: Patient denies any urinary symptoms of burning or frequency or hematuria, denies any form in the urine. SKIN: Denies any rash. MUSCULOSKELETAL: Denies any muscular skeletal problems of joint pains. NEUROLOGICAL: Denies any neurological problems of strokes, seizures or confusion. Denies any memory problems. PSYCHIATRIC: Denies any depression or anxiety. LYMPHATICS : No lymphadenopathy Exam Vital Signs Temp Pulse Resp BP Pulse Ox O2 Del Method 36.7 C 94 16 150/90 H 95 Room Air 04/26/24 08:00 04/26/24 09:12 04/26/24 08:00 04/26/24 09:12 04/26/24 08:00 04/26/24 08:00 Narrative Exam GENERAL APPEARANCE: Patient seems to be comfortable, seems dehydrated HEENT: Right eye significantly erythematous. Eyelids are swollen. NECK: Neck supple, no JVD or bruit CARDIOVASCULAR: Heart regular, no murmurs LUNGS/CHEST: Chest clear to auscultation. No rales, rhonchi, wheezing ABDOMEN: Soft, nontender, nondistended. No masses. Normal bowel sounds. Right allograft+ EXTREMITIES: No edema, clubbing or cyanosis. SKIN: Left arm AV fistula with no thrill. MUSCULOSKELETAL: Good pulses noted. NEUROLOGICAL : No neurological deficits Objective Labs 04/26/24 04:36 04/26/24 04:36 Labs: Laboratory Results - last 24 hr 04/26/24 04:36 WBC 5.7 RBC 5.21 Hgb 13.8 Hct 42.5 MCV 82 MCH 26.5 MCHC 32.5 RDW Std Deviation 39.6 Plt Count 208 Neut % (Auto) 51 Lymph % (Auto) 30 [place] % (Auto) 18 H Eos % (Auto) 1 Baso % (Auto) 0 Neut # (Auto) 2.9 Lymph # (Auto) 1.7 [place] # (Auto) 1.0 H Eos # (Auto) 0.1 Baso # (Auto) 0.0 Immature Gran # (Auto) 0.03 H Absolute Nucleated RBC 0.00 Immature Gran % 1 H Nucleated RBC % 0 Sodium 138 Potassium 4.2 Chloride 107 Carbon Dioxide 21.1 Anion Gap 10 BUN 34 H Creatinine 2.2 H Estim Creat Clear Calc 52.2 L eGFR 39 L BUN/Creatinine Ratio 15 Glucose 87 Calculated Osmolality 282 Calcium 9.5 Corrected Calcium 9.5 Phosphorus 3.6 Albumin 4.3 Assessment & Plan Assessment and plan (1) Acute kidney injury: Status: Acute (2) Hypertension: Status: Acute (3) Status post kidney transplant: Status: Acute (4) Metabolic acidosis: Status: Acute Additional Assessment & Plan Additional Plan: 1) Acute kidney injury: ?Status:?Acute ? ? ? Assessment and plan: Acute on chronic renal failure secondary to prerenal azotemia.? IV fluids given. 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 ? ? Assessment and plan: Continue metoprolol (3) Status post kidney transplant: ?Status:?Acute ? ? ? Assessment and plan: S/p kidney transplant-resume home immunosuppressive medication (4) hx of Deep venous thrombosis of upper extremity: ?Status:?Acute ? ? ? Assessment and plan: On Eliquis (5) Metabolic acidosis: ?Status:?Acute ? ? ? Assessment and plan: Added bicarbonate 6) conjunctivitis of the right eye-tobramycin eye ointment given. 7) fevers so far cultures negative. Estimated length of stay 2 to 3 days DVT prophylaxis on Eliquis GI prophylaxis not needed CODE STATUS full code Quality - progress note Quality Measures Quality Measures: VTE prophylaxis Reason for Continued Stay Reason for Continued Stay: further monitoring
[2024-04-25] MEDS: METOPROLOL TARTRATE 25 MG TABLET PO ×2 (09:50→21:07)
--- NOTE | 2024-04-25 12:28 | PC.NURSE ---
Addendum entered by Michelle Kaufman RN 04/25/24 12:31: Called [facility] to verify that she would be rounding in the hospital today. Informed her that I am concerned about the pt's right eye as the conjunctiva us very red and inflamed, and the eye is watery. Bony came and assessed and will be putting in orders for conjunctivitis tx. I went to see the pt and he was touching both eyes, so I educated him on the importance of not touching his eyes and proper hand hygiene, and warned about the probability of spreading to the left eye if he is not very careful Original Note: Called [facility] to verify that she would be rounding in the hospital today. Informed her that I am concerned about the pt's right eye as the conjunctiva us very red and inflamed, and the eye is watery. Bony came and assessed and will be putting in orders for conjunctivitis tx
--- NOTE | 2024-04-25 12:49 | PC.SS ---
Binh Kelly is a 34-year-old male admitted to [facility] for Fever SP Liver Transplant. SS conducted bedside contact with the patient to complete initial assessment and to discuss discharge planning. Patient confirmed demographic information. Patient identifies his sister Ghada Cramer [phone] as his surrogate decision maker. Patient resides at home with his family. Pt states he is able to complete all ADL?s independently, no need for any source of DME. Pts PCP is Dr. Lovett and pharmacy of choice is [facility]. DC option discussed and pt wishes to return home. Pts family will provide transportation upon DC. No further intervention required at this time, group social worker would be available to address any further concerns. DC Plan: Home Contact: SisterGhada PCP: Bony
[2024-04-25] MEDS: MYCOPHENOLIC 180 MG PO ×2 (13:35→21:08)
[2024-04-25] MEDS: ACETAMINOPHEN 500 MG TABLET PO (16:52)
[2024-04-25] MEDS: [UNRECOGNIZED DRUG - OTHER] RIGHT EYE ×2 (17:37→21:12)
[2024-04-25] MEDS: TACROLIMUS 1 MG CAPSULE (NON-FORMULARY) 6 MG PO (21:08)
--- NOTE | 2024-04-26 00:01 | PC.NURSE ---
Pt moved to room 253 via bed with all belongings while room is being checked by [facility] staff.
[2024-04-26 00:03] VITALS: BP 128/83; PULSE 76; TEMP 36.2; O2SAT 97
[2024-04-26] MEDS: ACETAMINOPHEN 500 MG TABLET PO (00:26)
[2024-04-26 03:49] VITALS: BP 105/53; PULSE 76; TEMP 36.7; O2SAT 96
[2024-04-26] MEDS: [UNRECOGNIZED DRUG - OTHER] RIGHT EYE (06:08)
[2024-04-26] MEDS: PIPER/TAZO 3.375 GM 50 ML IV (06:08)
[2024-04-26] MEDS: SODIUM BICARBONATE 650 MG TABLET 1300 MG PO (06:08)
[2024-04-26 06:31] LABS: Basophils % (Auto) 0 % (0-2.5); Eosinophils # (Auto) 0.1 Thou/mm3 (0.0-0.5); Eosinophils % (Auto) 1 % (0-10); Hematocrit 42.5 % (41.0-53.0); Hemoglobin 13.8 g/dL (13.5-16.0); Immature Granulocytes % (Auto) 1 % (0-0); Immature Granulocytes Auto 0.03 Thou/mm3 (0.00-0.00); Lymphocytes # (Auto) 1.7 Thou/mm3 (1.0-4.8); Lymphocytes % (Auto) 30 % (10-50); Mean Corpuscular HGB Conc 32.5 g/dl (31.0-37.0); Mean Corpuscular Hemoglobin 26.5 pg (25.0-35.0); Mean Corpuscular Volume 82 fL (80-100); Monocytes % (Auto) 18 % (0-12); Neutrophils # (Auto) 2.9 Thou/mm3 (1.8-7.7); Neutrophils % (Auto) 51 % (37-80); Nucleated Red Blood Cell % 0 /100 WBC (0); Platelet Count 208 Thou/mm3 (140-440); RDW Standard Deviation 39.6 fL (35.1-43.9); Red Blood Count 5.21 Miln/mm3 (4.50-5.90); White Blood Count 5.7 Thou/mm3 (3.8-10.6)
[2024-04-26 07:16] LABS: Albumin, Serum 4.3 gm/dL (3.5-5.0); Anion Gap 10 (7-16); BUN/Creatinine Ratio 15 Ratio (12-20); Blood Urea Nitrogen 34 mg/dL (9-23); Calcium 9.5 mg/dL (8.3-10.6); Calcium (Corrected) 9.5 mg/dL (8.5-10.1); Carbon Dioxide 21.1 mMol/L (20.0-31.0); Chloride 107 mMol/L (98-107); Creatinine (Component) 2.2 mg/dL (0.6-1.3); Estimated Creatinine Clearance 52.2 mL/min (>60); Glucose 87 mg/dL (74-106); Osmolality,Calculated 282 (275-295); Phosphorous 3.6 mg/dL (2.4-5.1); Potassium 4.2 mMol/L (3.4-5.1); Sodium 138 mMol/L (136-145); eGFR 39 See Note
[2024-04-26 08:00] VITALS: BP 150/90; PULSE 94; RESP 16; TEMP 36.7; O2SAT 95
[2024-04-26 09:12] VITALS: BP 150/90; PULSE 94
[2024-04-26] MEDS: MYCOPHENOLIC 180 MG PO (09:12)
[2024-04-26] MEDS: METOPROLOL TARTRATE 25 MG TABLET PO (09:12)
[2024-04-26] MEDS: TACROLIMUS 1 MG CAPSULE (NON-FORMULARY) 5 MG PO (09:13)
--- NOTE | 2024-04-26 09:29 | PD.NEPHDC ---
Planned Discharge Date 04/26/24 DS: Providers Provider Date of admission: 04/24/24 16:43 Primary care physician: Anant Lovett MD Admitting Provider: Anant Lovett MD Attending Provider on Admission: Anant Lovett MD Attending Provider on DC: Anant Lovett MD Discharging Provider: Anant Lovett MD Discharge Diagnosis Discharge Diagnosis (1) Acute kidney injury: Status: Acute Assessment & Plan: 1) Acute kidney injury: ?Status:?Acute ? ? ? Assessment and plan: Acute on chronic renal failure secondary to prerenal azotemia.? IV fluids given. 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 ? ? Assessment and plan: Continue metoprolol (3) Status post kidney transplant: ?Status:?Acute ? ? ? Assessment and plan: S/p kidney transplant-resume home immunosuppressive medication (4) hx of Deep venous thrombosis of upper extremity: ?Status:?Acute ? ? ? Assessment and plan: On Eliquis (5) Metabolic acidosis: ?Status:?Acute ? ? ? Assessment and plan: Added bicarbonate 6) conjunctivitis of the right eye-tobramycin eye ointment given. Patient will be discharged on Augmentin. Follow-up with client services representative today 7) fevers so far cultures negative. (2) Hypertension: Status: Acute (3) Status post kidney transplant: Status: Acute (4) Metabolic acidosis: Status: Acute Problem List Completed Was Problem List Reviewed/Reconciled?: Yes Hospital Course Hospital Course Hospital course: Mr. Cramer is a?34 year-old male with pmhx significant for polycystic kidney disease, hypertension- was on hemodialysis for couple of years. Fortunately had kidney transplant (2018 at [facility]- wit delayed graft function), left upper arm DVT, metabolic acidosis presented to emergency department complaining of fevers weakness and not feeling well. Denies any nausea, vomiting, diarrhea, cough, shortness of breath, abdominal pain, UTI symptoms or any other associated symptoms. Denies any falls, injuries, or loss of consciousness. No known allergies. Patient states he is currently on Eliquis, Lipitor, vitamin D, magnesium, metoprolol, CellCept, sodium bicarbonate, tacrolimus for kidney transplant in 2018. In the emergency department patient was noted to have a elevated creatinine of 2.1 Started on IV fluids and admitted. ER called the transplant team-recommended overnight observation pending cultures and to continue with IV fluids. In the emergency department WBC 10, hemoglobin 14.5, platelets 197, sodium 134, potassium 4.6, BUN to 24, creatinine 2.1, GFR 57, blood sugar 116, LFTs normal, phosphorus 2.9, magnesium 1.4, total bilirubin 2.5, AST 39, ALT 59, total cholesterol 130, Pro-Willis 0.54 urinalysis shows 1+ protein few red blood cells and white cells. 2+ blood. chest x-ray showed inflammation in the hilar area. Abdominal CT showed liver cirrhosis, splenomegaly, end-stage kidneys, right kidney transplant. Gallbladder ultrasound showed no definite gallstones but the common bile duct was 0.3 gallbladder wall slightly enlarged. MRCP showed no stones. Patient in fact recently was admitted to [facility] for acute renal failure and transferred to [facility]. Admitted to the floor for fever-unknown etiology, immunosuppression for kidney transplant, DOC. 04/26/2024 Patient currently seen in medical floor. Resting comfortably no fevers white count normalized. Creatinine stable at 2.2. He is going to be discharged on p.o. Augmentin and tobramycin eye ointment to be followed up with his power regulator today for his conjunctivitis. Status at Discharge Cognitive/behavioral status at discharge: Stable Functional status at discharge: independent ambulation Overall status at discharge: patient is back to baseline Time Spent with Patient Time attestation: Total time spent providing and/or coordinating discharge services: 35 minutes Exam Vital Signs Temp Pulse Resp BP Pulse Ox O2 Del Method 36.7 C 94 16 150/90 H 95 Room Air 04/26/24 08:00 04/26/24 09:12 04/26/24 08:00 04/26/24 09:12 04/26/24 08:00 04/26/24 08:00 Narrative Exam GENERAL APPEARANCE: Patient seems to be comfortable, seems dehydrated HEENT:Right eye significantly erythematous. Eyelids are swollen. NECK: Neck supple, no JVD or bruit CARDIOVASCULAR: Heart regular, no murmurs LUNGS/CHEST: Chest clear to auscultation. No rales, rhonchi, wheezing ABDOMEN: Soft, nontender, nondistended. No masses. Normal bowel sounds. Right allograft+ EXTREMITIES: No edema, clubbing or cyanosis. SKIN: Left arm AV fistula with no thrill. MUSCULOSKELETAL: Good pulses noted. NEUROLOGICAL : No neurological deficits Discharge Plan Plan Patient Disposition: HOME (Self Care) Prescriptions/Referrals Prescriptions/Med Rec: New gentamicin 0.1 % Ointment 1 applic top TID Qty: 1 0RF Rx Instructions: 10g- apply peasize into rt eye TID-5 days amoxicillin-pot clavulanate [Augmentin] 500-125 mg tablet 1 tab PO BID Qty: 14 0RF Continued tacrolimus 5 mg Capsule 5 mg PO 2XD tacrolimus 1 mg Capsule 1 mg PO 2XD mycophenolate sodium [Myfortic] 180 mg tablet,delayed release (DR/EC) 720 mg PO BID sodium bicarbonate 325 mg Tablet 650 mg PO 3XD metoprolol tartrate 25 mg tablet 25 tab PO 2XD magnesium oxide 400 mg (241.3 mg magnesium) tablet 400 mg PO QAM Patient Comments: TAKE 1 TABLET BY MOUTH ONCE DAILY Eliquis 5 mg tablet 5 mg PO QAM Patient Comments: TAKE 1 TABLET BY MOUTH TWICE DAILY atorvastatin 20 mg tablet 20 mg PO HS Patient Comments: TAKE 1 TABLET BY MOUTH AT BEDTIME ergocalciferol (vitamin D2) 1,250 mcg (50,000 unit) capsule 1,250 mcg PO QDAY Patient Comments: TAKE 1 CAPSULE BY MOUTH ONCE A WEEK Referrals: Anant Lovett MD [Primary Care Provider] - Patient/Caregiver Discharge Instructions Discharge Activity: resume usual activities Education Materials: ED Unknown Causes of Abdominal ... Print Language: Korean Activity Restrictions/Additional Instructions: f/u with me in 1-week, appointment with eye doctor today Stand Alone Forms: Dori Award Info., Patient Portal Info Letter Discharge Order Discharge Orders: Discharge (Routine); Ordered 04/26/24 Ordered By: Anant Lovett
[2024-04-26 10:59] VITALS: BP 154/93; PULSE 81; RESP 18; TEMP 36.8; O2SAT 98
--- NOTE | 2024-04-26 13:07 | PC.SS ---
Update: Plan is to d/c the patient home today.
== END 2024-04-26 11:45 | disposition home or self-care (01) | DRG 699 ==
LOC: SERX 04-24 05:18 → SERHOLD 04-24 17:23 → S3SX 04-24 19:56 → S2SX 04-26 07:20
PROVIDERS: Emergency Medicine; Nurse Practitioner Primary Care; Admitting Provider Internal Medicine; Emergency Provider Emergency Medicine; PCP Internal Medicine; Visit Provider Internal Medicine
DX: T86.19 Other complication of kidney transplant (principal); D84.9 Immunodeficiency, unspecified; N17.9 Acute kidney failure, unspecified; R50.9 Fever, unspecified; E87.20 Acidosis, unspecified; Q61.3 Polycystic kidney, unspecified; E11.21 Type 2 diabetes mellitus with diabetic nephropathy; N18.9 Chronic kidney disease, unspecified; H10.9 Unspecified conjunctivitis; K74.60 Unspecified cirrhosis of liver; R16.1 Splenomegaly, not elsewhere classified; Z86.718 Personal history of other venous thrombosis and embolism; Z79.621 Long term (current) use of calcineurin inhibitor; Z79.01 Long term (current) use of anticoagulants; Z79.899 Other long term (current) drug therapy; Y83.0 Surgical operation with transplant of whole organ as the cause of abnormal reaction of the patient, or of later complication, without mention of misadventure at the time of the procedure
CPT/HCPCS: 36415; 71045; 74018; 74176; 76705; 80053; 80069; 81001; 82465; 83605; 83615; 83690; 83735; 84145; 84484; 85025; 85610; 87040; 87086; 87400; 87811; 96361; 96365; 96375; 99285; J2270; J2405; J2543; J3475; J7030; J7507; S8037; 74181; A9270